=== PATIENT | male | born 1955 | race Caucasian/White ===

== ENCOUNTER 2016-11-15 11:11 | Emergency (ER) | payer OTHER ==
[~2016-11-15] VITALS: Ht 170.2 cm; Wt 73.0 kg
[~2016-11-15 11:11] MED LIST: IBUP100T6 PO
[2016-11-15 11:20] VITALS: Ht 170.2 cm; Wt 73.0 kg
[2016-11-15] MEDS ORDERED: COLC0.6T6 PO (12:14)
[2016-11-15] MEDS ORDERED: HYDR-906 PO (12:15)
--- NOTE | 2016-11-15 12:20 | ERD ---
ER Documentation Chief Complaint Date/Time DATE: 11/15/16 TIME: 12:18 Chief Complaint LEFT LEG PAIN RADIATING UP LEG X2 WKS GETTING WORSE HPI Patient is a 61-year-old nondiabetic male who has pain in his left foot particularly over the lateral aspect of the base of the great toe. This is been for 2 weeks. He denies any trauma. He has been taking ibuprofen 800 mg but does not help. No fever. No bleeding or drainage. No warmth. Patient is ambulatory ROS All systems reviewed and are negative except as per history of present illness. Medications Home Meds Active Scripts Hydrocodone/Acetaminophen ([place] 5-325 Tablet) 1 Each Tablet, 1 TAB PO Q6H Y for PAIN, #20 TAB Prov:TRISTEN REYNOSO PA-C 11/15/16 Colchicine* (Colcrys*) 0.6 Mg Tablet, 0.6 MG PO DAILY for 3 Days, TAB Prov:TRISTEN REYNOSO PA-C 11/15/16 Reported Medications Ibuprofen (Advil) 100 Mg Tab.chew, 100 MG PO Q 6 HRS PRN 11/04/10 Allergies Allergies: Coded Allergies: No Known Allergies (Verified Allergy, Mild, 11/04/10) PMhx/Soc History of Surgery: Yes (LEFT ANKLE SURGERY) Anesthesia Reaction: No Hx Neurological Disorder: No Hx Respiratory Disorders: No Hx Cardiac Disorders: No Hx Psychiatric Problems: No Hx Miscellaneous Medical Probl: No Hx Alcohol Use: Yes (OCCASIONAL) Hx Substance Use: No Hx Tobacco Use: No FmHx Family History: No diabetes Physical Exam Vitals Vital Signs Date Time Temp Pulse Resp B/P Pulse Ox O2 Delivery O2 Flow Rate FiO2 11/15/16 11:20 97.8 77 18 138/80 99 Physical Exam INITIAL VITAL SIGNS: Reviewed by me GENERAL: Awake, alert and oriented x 4, well appearing, nontoxic, speaking in full sentences. No acute distress HEAD: Atraumatic . RESPIRATORY: Clear to auscultation bilaterally. Symmetric chest wall rise. No wheezing or rales. No accessory muscle use. CV: Regular rate and rhythm. No murmurs, rubs, or gallops. EXTREMITIES: Left foot along the lateral aspect of the base great toe there is localed area of swelling and mild erythema consistent with cout Procedures/MDM 61-year-old male presents with toe pain. Examination is consistent with gout. Patients is alert, oriented, well appearing, and in no distress with normal vital signs. There is no fever, tachycardia, or tachypnea. Patient was discharged with colchicine and [place] for pain. He was given information on gout diet. Patient counseled regarding my diagnostic impression and care plan. Prior to discharge all questions answered. Pt agrees with treatment plan and understands strict return precautions. Pt is instructed to follow up with primary care provider within 24-48 hours. Precautionary instructions provided including instructions to return to the ER if not improving or for any worsening or changing symptoms or concerns. Departure Diagnosis: Primary Impression: Gout Condition: Stable Patient Instructions: Treating Gout Attacks, Eating to Prevent Gout, Gout Diet Additional Instructions: Llame al doctor MAANA y colin shawn EVANS PARA DENTRO DE 1-2 RODRIGUES.Dgale a la secretaria que nosotros le instruimos hacer esta evans.Avise o llame si rai condicin se empeora antes de la evans. Regresa aqui si peor o no mejor. TRISTEN REYNOSO PA-C Nov 15, 2016 12:20
== END 2016-11-15 18:00 | disposition home or self-care (01) ==
LOC: FTE 11:11
DX: M10.9 Gout, unspecified (principal)
CPT/HCPCS: 99284